=== PATIENT | male | born 1940 | race Caucasian/White ===

== ENCOUNTER → 2020-08-08 13:25 | Outpatient (BNVA) | payer OTHER, SELFPAY | PROVIDERS: Visit Provider Physician Assistant Medical | DX: S01.91XA Laceration without foreign body of unspecified part of head, initial encounter (principal); S23.41XA Sprain of ribs, initial encounter; S30.0XXA Contusion of lower back and pelvis, initial encounter; X58.XXXA Exposure to other specified factors, initial encounter; M54.5 Low back pain | CPT/HCPCS: 99203 ==

== ENCOUNTER → 2020-08-15 12:55 | Outpatient (BNVA) | payer OTHER, SELFPAY | PROVIDERS: Visit Provider Physician Assistant | DX: S01.91XA Laceration without foreign body of unspecified part of head, initial encounter (principal); S22.49XA Multiple fractures of ribs, unspecified side, initial encounter for closed fracture; S30.0XXA Contusion of lower back and pelvis, initial encounter; X58.XXXA Exposure to other specified factors, initial encounter; M54.5 Low back pain | CPT/HCPCS: 99213 ==